=== PATIENT | male | born 1940 | race Caucasian/White ===

== ENCOUNTER 2016-11-04 09:33 | Emergency (ER) | payer MEDICARE ==
[2016-11-04] MEDS ORDERED: Ondansetron HCl/PF 4 MG/2 ML Vial ONE (10:01)
[2016-11-04] MEDS ORDERED: Famotidine In NaCl 20 mg/50 ml Premix Bag ONE (10:01)
[2016-11-04 10:18] LABS: CKMB 1.3 ng/mL (0-6.6); Troponin I 0.012 ng/mL (< 0.028)
[2016-11-04 10:26] LABS: Band 2 % (5-11); Eosinophils 2 % (0-10); Hemoglobin 15.1 g/dL (14.0-18.0); Lymphocytes 24 % (21-51); MDiff Complete? YES; Mean Corpuscular HGB CONC 34.1 g/dL (32.0-36.0); Mean Corpuscular Hemoglobin 31.7 pg (27.0-31.0); Mean Corpuscular Volume 93.1 fl (80.0-94.0); Mean Platelet Volume 8.5 fL (7.4-10.4); Monocytes 6 % (0-10); Neutrophil 66 % (42-75); Platelet Count 174 thou/uL (130-400); RBC Distribution Width 12.4 % (11.5-14.5); Red Blood Cell (RBC) Count 4.76 mill/uL (4.70-6.10)
[2016-11-04 10:28] LABS: ALT (SGPT) 28 U/L (8-55); AST (SGOT) 31 U/L (5-34); Albumin 3.7 g/dL (3.4-4.8); Alkaline Phosphatase 46 U/L (40-150); Anion Gap 16 mmol/L (10-20); BUN (Urea Nitrogen) 15 mg/dL (8.4-25.7); Bilirubin, Total 1.1 mg/dL (0.2-1.2); Calc. Creatinine Clearance 0 mL/min (70-130); Calcium 9.2 mg/dL (7.8-10.44); Carbon Dioxide 22 mmol/L (23-31); Chloride 100 mmol/L (98-107); Estimated GFR-MDRD 72; Globulin 4.1 g/dL (2.4-3.5); Glucose 103 mg/dL (83-110); Lipase 13 U/L (8-78); Potassium 5.4 mmol/L (3.5-5.1); Protein, Total 7.8 g/dL (5.8-8.1); Sodium 133 mmol/L (136-145)
[2016-11-04 10:49] LABS: Bilirubin Negative (Negative); Blood, Urine Negative (Negative); Clarity Clear (Clear); Glucose, Urine (Dipstick) Negative (Negative); Leukocyte Negative (Negative); Nitrite Negative (Negative); Protein, Urine (Dipstick) Negative (Neg-Trace)
--- NOTE | 2016-11-04 19:46 | RAD ---
PORTABLE CHEST 11/04/16 An AP portable film at 0941 is compared with a 03/12/[address] [facility], as well a s more recent films done in October. Elevation of the left hemidiaphragm is chronic and no different than in 2016. The lungs are clear wi th no acute infiltrate or effusions seen. The heart size is borderline but unchanged as well. There is no vascular congestion or edema. IMPRESSION: Chronic changes but no acute finding. POS: HOME
--- NOTE | 2016-11-04 20:13 | CT ---
CT ABDOMEN AND PELVIS WITH CONTRAST 11/04/16 Correlation was made with an MRI of the abdomen dated 04/14/15. Axial slices were acquired, then coronal and sagittal reconstructions were done. There is marked elevation of the left hemidiaphragm, but this is a chronic finding in this patient. No free air or free fluid was seen. There is no distention of bowel to suggest obstruction and no in flammatory changes are seen around bowel. No worrisome bowel wall thickening was detected. The liver, spleen, pancreas, adrenal glands, and abdominal aorta showed no acute findings. No calcif ications were seen in the gallbladder. Several cysts are seen associated with the kidneys, the large st being in the left kidney. These are longstanding. CT of the pelvis shows no pelvic masses, fluid collections, or inflammatory changes. The prostate is mildly enlarged and there is some mild concentric thickening of the urinary bladder wall. The bony structures showed no acute findings. Some degenerative changes are noted in the spine. A mild anterolisthesis of L5 on S1 is seen. 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 IMPRESSION: No acute abdominal findings to explain the patient's pain or nausea. POS: HOME
== END 2016-11-04 12:21 | disposition home or self-care (01) ==
LOC: BURERS 09:33
DX: R62.7 Adult failure to thrive (principal); I10 Essential (primary) hypertension; I69.320 Aphasia following cerebral infarction; I48.91 Unspecified atrial fibrillation; C69.91 Malignant neoplasm of unspecified site of right eye; J45.909 Unspecified asthma, uncomplicated; F41.9 Anxiety disorder, unspecified
CPT/HCPCS: 36415; 71010; 74177; 80053; 81003; 82553; 83690; 83880; 84484; 85025; 93005; 94760; 96361; 96365; 96375; J2405